=== PATIENT | male | born 1995 | race Caucasian/White ===

== ENCOUNTER 2016-12-13 18:03 | Emergency (ER) | payer OTHER ==
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
[2016-12-13] MEDS ORDERED: LORazepam 0.5 MG TABLET PO STA (18:55)
[2016-12-13 19:24] LABS: BASOPHILS % (AUTO) 0.1 %; EOSINOPHILS # (AUTO) 0.1 10^3/uL (0.0-0.7); EOSINOPHILS % (AUTO) 0.4 %; HCT - HEMATOCRIT 42.8 % (42.0-52.0); HGB - HEMOGLOBIN 14.4 g/dL (14.0-18.0); LYMPHOCYTES # (AUTO) 1.4 10^3/uL (1.5-3.5); LYMPHOCYTES % (AUTO) 8.3 %; MEAN CORPUSCULAR HEMOGLOBIN 30.3 pg (27.0-31.0); MEAN CORPUSCULAR HGB CONC 33.7 g/dL (32.0-36.0); MONOCYTES # (AUTO) 0.8 10^3/uL (0.0-1.0); MONOCYTES % (AUTO) 4.7 %; NEUTROPHILS # (AUTO) 14.2 10^3/uL (1.5-6.6); NEUTROPHILS % (AUTO) 86.5 %; RED BLOOD COUNT 4.76 10^6/uL (4.70-6.10); RED CELL DISTRIBUTION WIDTH 13.3 % (12.0-15.0); UNCORRECTED WHITE BLOOD COUNT 16.5 x10^3/uL; WHITE BLOOD COUNT 16.5 x10^3/uL (4.8-10.8)
[2016-12-13 19:36] LABS: ALBUMIN/GLOBULIN RATIO 1.5 (1.0-2.2); BILIRUBIN,TOTAL 1.4 mg/dL (0.2-1.0); BUN - BLOOD UREA NITROGEN 15 mg/dL (6-20); CALCIUM 9.6 mg/dL (8.5-10.3); CARBON DIOXIDE - CO2 29 mmol/L (21-32); CHLORIDE 99 mmol/L (101-111); CREATININE 0.9 mg/dL (0.6-1.2); GFR - MDRD 108 (>89); GLUCOSE 106 mg/dL (70-100); LIPASE 24 U/L (22-51); POTASSIUM 3.9 mmol/L (3.5-5.0); SALICYLATE < 6.0 mg/dL; SODIUM 136 mmol/L (135-145); TOTAL PROTEIN 7.9 g/dL (6.7-8.2)
[2016-12-13] MEDS ORDERED: LORazepam 0.5 MG TABLET ONE (19:37)
[2016-12-13 20:35] LABS: ACETAMINOPHEN < 10 ug/mL (10-30)
[2016-12-13 21:22] VITALS: BP 119/58
== END 2016-12-13 21:50 ==
LOC: ED 18:03
DX: F41.9 Anxiety disorder, unspecified (principal); R45.851 Suicidal ideations; F32.2 Major depressive disorder, single episode, severe without psychotic features; Z62.819 Personal history of unspecified abuse in childhood
CPT/HCPCS: 36415; 80053; 80306; 80307; 80320; 80329; 83690; 84443; 85025; 99283; 99284; A9270

== ENCOUNTER 2018-05-20 21:06 | Outpatient (CLI) | payer OTHER | END 2018-05-20 23:59 | disposition critical access hospital (66) | LOC: EMS 21:06 | PROVIDERS: ATTEND Surgery | DX: R07.9 Chest pain, unspecified (principal) | CPT/HCPCS: A0425; A0427 ==

== ENCOUNTER 2018-05-20 21:26 | Emergency (ER) | payer OTHER ==
--- NOTE | 2018-05-20 21:34 | ED Physician Documentation ---
History of Present Illness - Stated complaint Stated Complaint: CHEST PAIN - Chief complaint Chief Complaint: Cardiac - Additonal information Additional information: hx from pt and EMS health 22 y/o male approx 830 PM onset chest pressure started at rest over lower sternum with SOA was 6/10 severity no rad to neck back or abd L arm was numb - no color change EMS called EKG showed no ischemia given asa and nitro sl X 1 and pain dec to 2/10 hx PTSD no anxiety etc tonight no recent fever cough illness no travel no leg swelling + fhx CAD onset in 40s both sides no personal hx CAD HTN HLD DM non smoker works out s cp or soa Review of Systems Constitutional: denies: Fever, Chills Cardiac: reports: Chest pain / pressure Respiratory: reports: Dyspnea GI: denies: Abdominal Pain, Nausea, Vomiting Musculoskeletal: denies: Extremity pain, Extremity swelling Neurologic: denies: Generalized weakness Endocrine: denies: Easy bruising / bleeding Immunocompromised: denies: Immunocompromised PD PAST MEDICAL HISTORY - Past Medical History Cardiovascular: None Respiratory: None Endocrine/Autoimmune: None Psych: Depression, Post traumatic stress disorder - Present Medications Home Medications: Ambulatory Orders Medication Instructions Recorded Confirmed No Known Home Medications 05/20/18 05/20/18 - Allergies Allergies/Adverse Reactions: Allergies Allergy/AdvReac Type Severity Reaction Status Date / Time No Known Drug Allergies Allergy Verified 05/20/18 21:36 - Social History Does the pt smoke?: No Smoking Status: Never smoker - Immunizations Immunizations are current?: Yes PD ED PE NORMAL - Vitals Vital signs reviewed: Yes - General General: Alert and oriented X 3 - HEENT HEENT: PERRL - Neck Neck: Supple, no meningeal sign - Cardiac Cardiac: RRR, No murmur - Respiratory Respiratory: No respiratory distress - Abdomen Abdomen: Soft, Non tender - Extremities Extremities: No tenderness to palpate, No edema, No calf tenderness / cord - Neuro Neuro: Alert and oriented X 3 Results - Vitals Vitals: Vital Signs - 24 hr 05/20/18 05/20/18 05/20/18 21:25 21:45 22:03 Temperature Heart Rate 87 85 68 Respiratory 16 16 16 Rate Blood Pressure 146/92 H 127/81 H 119/88 H Blood Pressure 146/92 H [Left] Blood Pressure 122/67 [Right] O2 Saturation 99 98 99 12/05/20/18 05/20/18 22:39 23:30 23:38 Temperature 36.3 C L 36.5 C Heart Rate 82 78 Respiratory 17 15 Rate Blood Pressure 106/70 122/67 Blood Pressure [Left] Blood Pressure [Right] O2 Saturation 99 99 05/21/18 05/21/18 00:37 01:04 Temperature 36.3 C L Heart Rate 74 73 Respiratory 16 17 Rate Blood Pressure 128/81 H 118/77 Blood Pressure [Left] Blood Pressure [Right] O2 Saturation 100 100 Oxygen O2 Source Room air - EKG (time done) 2128 Rate: Rate (enter#) (74) Rhythm: NSR [place]: Normal Intervals: Normal MD, QRS normal. No: Prolonged QT Ischemia: ST elevation c/w repol (concave up ST elev most prom in V2 V3 without reciprocal changes) - Labs Labs: Laboratory Tests 05/20/18 05/20/18 05/20/18 21:32 21:32 21:32 WBC 9.3 RBC 4.71 Hgb 14.7 Hct 42.0 MCV 89.2 MCH 31.2 H MCHC 35.0 RDW 12.8 Plt Count 312 MPV 8.7 Neut # (Auto) 5.2 Lymph # (Auto) 2.9 [place] # (Auto) 1.0 Eos # (Auto) 0.2 Baso # (Auto) 0.0 Absolute Nucleated RBC 0.01 Nucleated RBC % 0.1 Sodium 139 Potassium 3.6 Chloride 100 L Carbon Dioxide 30 Anion Gap 9.0 BUN 12 Creatinine 1.0 Estimated GFR (MDRD) 94 Glucose 100 Calcium 9.9 Total Bilirubin 1.5 H AST 25 ALT 32 Alkaline Phosphatase 66 Troponin I < 0.04 Total Protein 8.4 H Albumin 5.1 Globulin 3.3 Albumin/Globulin Ratio 1.5 Lipase 57 H 05/21/18 00:38 WBC RBC Hgb Hct MCV MCH MCHC RDW Plt Count MPV Neut # (Auto) Lymph # (Auto) [place] # (Auto) Eos # (Auto) Baso # (Auto) Absolute Nucleated RBC Nucleated RBC % Sodium Potassium Chloride Carbon Dioxide Anion Gap BUN Creatinine Estimated GFR (MDRD) Glucose Calcium Total Bilirubin AST ALT Alkaline Phosphatase Troponin I < 0.04 Total Protein Albumin Globulin Albumin/Globulin Ratio Lipase - Rads (name of study) CXR Radiology: See rad report (NACPD, nl mediastinum, no cap, no effusion) RUQ Radiology: See rad report (nl ruq sono - no gallstones) PD MEDICAL DECISION MAKING - ED course ED course: PERC negatiove doubt PZE no radiation into back and nl mediastinum on CXR doubt dissection or aneurysm EKG most suggestive of repol - but strong fhx CAD so got 4 hr trop and it was negative also ruq so neg for biliary dz feel pt is low risk and after neg trop X 2 safe to dc home Departure - Departure Disposition: Home, Self Care Clinical Impression: Chest pain Qualifiers: Chest pain type: unspecified Qualified Code(s): R07.9 - Chest pain, unspecified Condition: Good Instructions: ED Chest Pain Atypical Unkn Cause Comments: All of your tests came back fine. The EKG and two sets of cardiac enzymes do not indicate this was a heart attack. The history and exam do not suggest a blood clot in your lung. The xray does not show an aneurysm or tear of your aorta. And the ultrasound of your gallbladder was fine too. I am not sure what did cause the pain. I am not saying nothing is wrong But given the reassuring work up, I do not think it is a heart attack, blood clot, or aneurysm - and I think it is safe for you to go home. Please follow up with your PMD for a recheck this week. Return to the ER if worse or new symptoms develop. Forms: Activity restrictions
[2018-05-20 21:37] LABS: BASOPHILS % (AUTO) 0.5 %; EOSINOPHILS # (AUTO) 0.2 10^3/uL (0.0-0.7); EOSINOPHILS % (AUTO) 2.3 %; HGB - HEMOGLOBIN 14.7 g/dL (14.0-18.0); LYMPHOCYTES # (AUTO) 2.9 10^3/uL (1.5-3.5); LYMPHOCYTES % (AUTO) 31.3 %; MEAN CORPUSCULAR HEMOGLOBIN 31.2 pg (27.0-31.0); MEAN CORPUSCULAR VOLUME 89.2 fL (80.0-94.0); MEAN PLATELET VOLUME 8.7 fL (7.4-11.4); MONOCYTES % (AUTO) 10.4 %; NEUTROPHILS # (AUTO) 5.2 10^3/uL (1.5-6.6); NEUTROPHILS % (AUTO) 55.5 %; PLT - PLATELET COUNT 312 10^3/uL (130-450); RED BLOOD COUNT 4.71 10^6/uL (4.70-6.10); RED CELL DISTRIBUTION WIDTH 12.8 % (12.0-15.0); WHITE BLOOD COUNT 9.3 x10^3/uL (4.8-10.8)
[2018-05-20 21:50] LABS: ALBUMIN 5.1 g/dL (3.2-5.5); ALBUMIN/GLOBULIN RATIO 1.5 (1.0-2.2); BILIRUBIN,TOTAL 1.5 mg/dL (0.2-1.0); CALCIUM 9.9 mg/dL (8.5-10.3); TOTAL PROTEIN 8.4 g/dL (6.7-8.2)
--- NOTE | 2018-05-20 21:58 | XRAY Report ---
Reason: cp soa Procedure Date: 05/20/2018 Accession Number: [id number] / [id number] Procedure: XR - Chest 2 View X-Ray CPT Code: 83969 FULL RESULT: EXAM: CHEST RADIOGRAPHY EXAM DATE: 05/20/2018 09:41 PM. CLINICAL HISTORY: Chest pain and shortness of breath. COMPARISON: None. TECHNIQUE: 2 views. FINDINGS: Lungs/Pleura: No focal opacities evident. No pleural effusion. No pneumothorax. Normal volumes. Mediastinum: Heart and mediastinal contours are unremarkable. Other: No bony abnormality noted. IMPRESSION: Normal 2-view chest radiography. [facility]
--- NOTE | 2018-05-20 22:54 | Ultrasound Report ---
Reason: chest pain, elev bili and lipase Procedure Date: 05/20/2018 Accession Number: [id number] / [id number] Procedure: US - Abdomen Limited CPT Code: FULL RESULT: EXAM: ABDOMEN ULTRASOUND LIMITED, RUQ EXAM DATE: 05/20/2018 10:23 PM. CLINICAL HISTORY: Chest pain. Elevated bili and lipase. COMPARISON: None. TECHNIQUE: Real-time scanning was performed with static images obtained. FINDINGS: Liver: Normal in size and echotexture. 13.9 cm. Main portal vein flow: Hepatopetal. Gallbladder: Contracted. No stones, wall thickening, or sonographic Perry's sign. Biliary System: CBD measures 3.4 mm. No intrahepatic or extrahepatic ductal dilatation. Other: The visualized pancreas and right kidney are unremarkable. No free fluid. IMPRESSION: Normal. No cholelithiasis or cholecystitis. [facility]
[2018-05-21 01:42] VITALS: BP 126/91
== END 2018-05-21 01:42 | disposition home or self-care (01) ==
LOC: EDUNIT# → ED 21:26
DX: R07.9 Chest pain, unspecified (principal); Z82.49 Family history of ischemic heart disease and other diseases of the circulatory system
CPT/HCPCS: 36415; 71046; 76705; 80053; 83690; 84484; 85025; 93005; 99283; 99284